=== PATIENT | male | born 1965 | race Caucasian/White ===

== ENCOUNTER → 2022-10-19 | Outpatient (CLI) | payer MEDICARE, MEDICAID, SELFPAY ==
--- NOTE | 2022-10-19 11:13 | MRI_ITS ---
STUDY: MRI RIGHT KNEE REASON FOR EXAM: Male, 56 years old. Lump on the knee. Abnormal x-ray. TECHNIQUE: Standardized fat and water weighted pulse sequences were obtained in all 3 orthogonal planes. COMPARISON: X-ray September 17, 2022 FINDINGS: Normal medial meniscus. Normal hyaline cartilage of the medial femorotibial compartment. Normal medial femoral condyle and tibial plateau. Normal medial collateral ligamentous complex (MCL). Normal distal semimembranosus, gracilis and semitendinosus tendons. Normal lateral meniscus. Normal hyaline cartilage of the lateral femorotibial compartment. Normal lateral femoral condyle and tibial plateau. Normal proximal tibiofibular articulation. Normal lateral collateral (fibular) ligament. Normal popliteus tendon. Normal biceps femoris tendon. Normal anterior cruciate ligament (ACL). Normal posterior cruciate ligament (PCL). There is arthrosis of the patellofemoral articulation. There is mild spurring. There is focal, less than 50% thickness articular cartilage loss of the patellofemoral compartment. Normal medial and lateral patellar retinaculum. Normal quadriceps tendon. Normal patellar tendon. Normal Hoffa''s fat pad. There is a small volume joint effusion. There is a 3.7 x 2.9 x 1.4 cm thick-walled fluid collection in the prepatellar subcutaneous tissues. There are decreased signal regions of the wall consistent with calcification seen on x-ray. The otherwise visualized osseous structures are unremarkable. MRI/Lower Ext Joint Only (Routine) IMPRESSION: Prepatellar calcified fluid collection. Patellofemoral degenerative change. Joint effusion. No meniscal tear. Electronically Signed: Nikolay West MD at 19:19 EST ,
[2022-10-19 11:56] VITALS: BP 124/78; PULSE 85; O2SAT 96
[2022-10-19 12:09] VITALS: BP 119/76; PULSE 96; O2SAT 96
[2022-10-19 12:24] VITALS: PULSE 85; O2SAT 96
== END | disposition home or self-care (01) ==
LOC: MRI 11:09
PROVIDERS: PCP Family Medicine; Visit Provider Orthopaedic Surgery Sports Medicine
DX: M70.41 Prepatellar bursitis, right knee (principal)
CPT/HCPCS: 73721